=== PATIENT | male | born 1985 | race Caucasian/White ===

== ENCOUNTER 2018-01-09 09:10 | Emergency (ER) | payer MEDICAID ==
[~2018-01-09] VITALS: Ht 180.3 cm; Wt 68.0 kg
[2018-01-09 09:21] VITALS: BP 128/81
[2018-01-09] MEDS ORDERED: HYDR-3965 PO (09:42)
[2018-01-09] MEDS ORDERED: CLIN150C8 PO (09:42)
[2018-01-09] MEDS ORDERED: HYDROcodone/acetaminophen 5mg/325mg tablet PO ONE (10:15)
== END 2018-01-09 10:21 | disposition home or self-care (01) ==
LOC: ER 09:11
DX: K08.89 Other specified disorders of teeth and supporting structures (principal)
CPT/HCPCS: 99283

== ENCOUNTER 2023-05-31 12:27 | Inpatient (IN) | payer MEDICAID ==
[~2023-05-31] VITALS: Ht 180.3 cm; Wt 68.2 kg
[~2023-05-31 12:27] MED LIST: CLIN-214 PO
[2023-05-31 13:27] LABS: BASOPHILS # (AUTO) 0.1 X10'3 (0-0.2); BASOPHILS % (AUTO) 0.4 % (0-1); EOSINOPHILS % (AUTO) 0.2 % (0-6); HEMATOCRIT 55.7 % (42.0-52.0); LYMPHOCYTES % (AUTO) 8.7 % (21-51); MEAN CORPUSCULAR HEMOGLOBIN 30.3 PG (27.0-31.0); MEAN CORPUSCULAR HGB CONC 33.9 g/dL (33.0-36.5); MEAN CORPUSCULAR VOLUME 89.4 FL (78-98); MEAN PLATELET VOLUME 7.2 FL (7.4-10.4); MONOCYTES # (AUTO) 1.1 X10'3 (0-0.9); MONOCYTES % (AUTO) 4.6 % (2-12); NEUTROPHILS # (AUTO) 19.8 X10'3 (1.8-7.7); NEUTROPHILS % (AUTO) 86.1 % (42-75); PLATELET COUNT 306 X10'3 (140-440); RED BLOOD COUNT 6.23 X10'6 (4.70-6.10); RED CELL DISTRIBUTION WIDTH 13.5 % (11.5-14.5)
[2023-05-31 13:33] LABS: HEMOGLOBIN 18.9 g/dl (14.0-17.9)
[2023-05-31 13:43] LABS: ALANINE AMINOTRANSFERASE 21 U/L (12-78); ALBUMIN/GLOBULIN RATIO 1.6 (1.1-1.5); ALKALINE PHOSPHATASE 124 IU/L (46-116); ANION GAP 17 (8-16); ASPARTATE AMINO TRANSFERASE 18 U/L (10-37); BILIRUBIN,TOTAL 2.4 MG/DL (0.1-1.0); BLOOD UREA NITROGEN 12 MG/DL (7-18); BUN/CREATININE RATIO 10.3 (10.0-20.0); CALCIUM 9.8 MG/DL (8.5-10.1); CHLORIDE 103 MMOL/L (99-107); CREATININE 1.16 MG/DL (0.60-1.10); GLUCOSE 100 MG/DL (70-104); LIPASE 74 U/L (16-77); POTASSIUM 4.4 MMOL/L (3.5-5.1); SODIUM 142 MMOL/L (135-145); TOTAL CARBON DIOXIDE 22.2 MMOL/L (24-32); TOTAL PROTEIN 8.1 G/DL (6.4-8.2); eCRCL 84 ML/MIN; eGFR 71 ML/MIN
[2023-05-31 13:53] LABS: BILIRUBIN,URINE NEGATIVE (Neg); CLARITY,URINE CLEAR (Clear); COLOR,URINE YELLOW (Yellow); GLUCOSE, URINE NEGATIVE (Neg); KETONES,URINE 40 mg/dl (Neg); LEUKOCYTE ESTERASE ,URINE NEGATIVE (Neg); NITRITES, URINE NEGATIVE (Neg); OCCULT BLOOD,URINE NEGATIVE (Neg); PH,URINE 6.5 (4.8-8.0); PROTEIN,URINE NEGATIVE (Neg); UA COLLECTION TYPE CLN CATCH MIDSTREAM; UROBILINOGEN,URINE 0.2 E.U/dL (0.2-1.0)
[2023-05-31] MEDS ORDERED: iohexol 300mg/ml 100ml inj. ONE (15:09)
[2023-05-31] MEDS: normal saline 1000ml 1,000 ML IV ONE ×2 (15:26→16:19)
[2023-05-31] MEDS: ondansetron/PF 4mg/2ml inj IV ONE (15:26)
[2023-05-31] MEDS: morphine 4 MG/ML inj SYRINge IV ONE (15:26)
[2023-05-31] MEDS: dextrose 5%-water 1,000 ML IV ONE (16:11)
[2023-05-31] MEDS: piperacillin/tazo 3.375gm/50ml 50 ML IV ONE (17:41)
[2023-05-31] MEDS ORDERED: potassium Cl 40MEQ/1/2NS 520ml 520 ML IV PRN (17:50)
[2023-05-31] MEDS ORDERED: potassium Cl 20 mEq SR tablet PO PRN ×2 (17:50)
[2023-05-31] MEDS ORDERED: mag hydrox/Alum hydrox/simeth 30ml oral suspension PO PRN (17:50)
[2023-05-31] MEDS ORDERED: acetaminophen 325mg tablet PO PRN (17:50)
[2023-05-31] MEDS ORDERED: ondansetron/PF 4mg/2ml inj IV PRN (17:50)
[2023-05-31] MEDS ORDERED: HYDROmorphone/PF 0.2 MG/ML SYRINGE IV PRN (17:50)
[2023-05-31] MEDS ORDERED: magnesium 4gm in 100ml NS 100 ML IV PRN (17:50)
[2023-05-31] MEDS ORDERED: magnesium 2GM in 50ml NS 50 ML IV PRN (17:50)
[2023-05-31] MEDS: nicotine 21mg patch - 24 hr TD ONE (17:53)
[2023-05-31] MEDS: normal saline 1000ml 1,000 ML IV SCH (18:13)
[2023-05-31] MEDS: HYDROmorphone inj. 0.5 MG/0.5 ML DISP.SYRIN IV PRN (18:44)
[2023-05-31] MEDS: K and/or MAG REPLACEMENT MC SCH (20:01)
[2023-05-31] MEDS ORDERED: NO HOME MEDS (21:25)
[2023-06-01] VITALS (20 sets, daily range): BP systolic 106–152; BP diastolic 58–92; PULSE 39–50; RESP 16–20; TEMP 97.3–97.9; O2SAT 99–100
[2023-06-01 08:28] LABS: BASOPHILS % (AUTO) 0.3 % (0-1); EOSINOPHILS # (AUTO) 0.2 X10'3 (0-0.9); EOSINOPHILS % (AUTO) 1.5 % (0-6); HEMATOCRIT 45.2 % (42.0-52.0); HEMOGLOBIN 15.2 g/dl (14.0-17.9); LYMPHOCYTES # (AUTO) 2.5 X10'3 (1.1-4.8); LYMPHOCYTES % (AUTO) 19.1 % (21-51); MEAN CORPUSCULAR HEMOGLOBIN 30.4 PG (27.0-31.0); MEAN CORPUSCULAR HGB CONC 33.7 g/dL (33.0-36.5); MEAN CORPUSCULAR VOLUME 90.2 FL (78-98); MEAN PLATELET VOLUME 7.1 FL (7.4-10.4); MONOCYTES # (AUTO) 1.2 X10'3 (0-0.9); MONOCYTES % (AUTO) 9.1 % (2-12); NEUTROPHILS # (AUTO) 9.1 X10'3 (1.8-7.7); PLATELET COUNT 186 X10'3 (140-440); RED BLOOD COUNT 5.01 X10'6 (4.70-6.10); RED CELL DISTRIBUTION WIDTH 13.3 % (11.5-14.5)
[2023-06-01 08:35] LABS: PROTHROMBIN TIME 10.9 SECONDS (9.0-12.0)
[2023-06-01 08:40] LABS: ALANINE AMINOTRANSFERASE 15 U/L (12-78); ALBUMIN 3.5 G/DL (3.4-5.0); ALBUMIN/GLOBULIN RATIO 1.5 (1.1-1.5); ALKALINE PHOSPHATASE 92 IU/L (46-116); ANION GAP 7 (8-16); ASPARTATE AMINO TRANSFERASE 36 U/L (10-37); BILIRUBIN,TOTAL 3.2 MG/DL (0.1-1.0); BLOOD UREA NITROGEN 7 MG/DL (7-18); BUN/CREATININE RATIO 7.4 (10.0-20.0); CALCIUM 7.9 MG/DL (8.5-10.1); CHLORIDE 107 MMOL/L (99-107); CREATININE 0.95 MG/DL (0.60-1.10); GLUCOSE 77 MG/DL (70-104); MAGNESIUM 1.9 MG/DL (1.5-2.4); POTASSIUM 4.1 MMOL/L (3.5-5.1); SODIUM 141 MMOL/L (135-145); TOTAL CARBON DIOXIDE 26.8 MMOL/L (24-32); TOTAL PROTEIN 5.9 G/DL (6.4-8.2); eCRCL 103 ML/MIN; eGFR 89 ML/MIN
[2023-06-01] MEDS: INDOCYANINE GREEN 25 MG/10 ML VIAL IV STA (09:12)
[2023-06-01] MEDS: piperacillin/tazo 4.5gm/100ml 100 ML IV SCH (09:29)
[2023-06-01] MEDS ORDERED: ondansetron/PF 4mg/2ml inj ONE (09:35)
[2023-06-01] MEDS ORDERED: neostigmine methylsulfate 1 MG/ML 10ml vial ONE (09:35)
[2023-06-01] MEDS ORDERED: sevoflurane 250ml liquid IH ONE (09:35)
[2023-06-01] MEDS ORDERED: LIDOcaine 2% (20mg/ml) 5ml vial ONE (09:35)
[2023-06-01] MEDS ORDERED: glycopyrrolate 0.2mg/ml inj ONE (09:35)
[2023-06-01] MEDS ORDERED: dexamethasone sod phosphate 10mg/ml inj ONE (09:35)
[2023-06-01] MEDS ORDERED: meperidine/PF 25mg/ml syringe IV PRN ×3 (09:40)
[2023-06-01] MEDS ORDERED: enalaprilat dihydrate 2.5mg/2ml vial IV PRN (09:40)
[2023-06-01] MEDS ORDERED: morphine 2 MG/ML inj. syringe IV PRN (09:40)
[2023-06-01] MEDS ORDERED: morphine 4 MG/ML inj SYRINge IV PRN (09:40)
[2023-06-01] MEDS ORDERED: proCHLORperazine 10 MG/2 ml inj IV PRN (09:40)
[2023-06-01] MEDS ORDERED: ondansetron/PF 4mg/2ml inj IV PRN (09:40)
[2023-06-01] MEDS ORDERED: labetalol 20mg/4ml (5mg/ml) syringe IV PRN (09:40)
[2023-06-01] MEDS: ringers solution, lacted 1,000 ML IV SCH (09:40)
[2023-06-01] MEDS ORDERED: fentaNYL/PF 50MCG/1 ML 2ML syringe ONE (09:44)
[2023-06-01] MEDS ORDERED: midazolam 1 mg/ML 2ml injection ONE (09:45)
[2023-06-01] MEDS ORDERED: meperidine/PF 25mg/ml syringe ONE (09:45)
[2023-06-01] MEDS ORDERED: propofol inj 20 ML IV ONE (09:46)
[2023-06-01] MEDS: BUPIVAcaine/PF 2.5 mg/ml (0.25%) 30ml vial IJ ONE (10:11)
[2023-06-01] MEDS: LIDOcaine 1% 30ml preserv. free vial IJ ONE (10:11)
[2023-06-01] MEDS ORDERED: rocuronium 10mg/ml inj IV ONE (10:28)
[2023-06-01] MEDS ORDERED: HYDROcodone/acetaminophen 10/325mg tab PO PRN (11:00)
[2023-06-01] MEDS ORDERED: naloxone 0.4 mg/ml inj IV PRN (11:00)
[2023-06-01] MEDS ORDERED: HYDROcodone/acetaminophen 5mg/325mg tablet PO PRN (11:00)
[2023-06-01] MEDS ORDERED: ONDA4TAB12 PO (13:35)
[2023-06-01] MEDS ORDERED: HYDR-3972 PO (13:35)
[2023-06-01] MEDS ORDERED: NICO-631 TD (13:35)
[2023-06-01] MEDS ORDERED: nicotine 14mg patch - 24hr TD SCH (20:00)
== END 2023-06-01 17:16 | disposition home or self-care (01) | DRG 263 ==
LOC: ER 12:28 → ED HOLD 17:54 → SUR 3N 06-01 06:53
PROVIDERS: ADMIT Family Medicine; ATTEND Family Medicine
PROC: BW211ZZ Computerized Tomography (CT Scan) of Abdomen and Pelvis using Low Osmolar Contrast (ICD-10-PCS; 2023-05-31)
PROC: BF502Z0 Other Imaging of Bile Ducts using Fluorescing Agent, Intraoperative (ICD-10-PCS; 2023-06-01)
PROC: 8E0W4CZ Robotic Assisted Procedure of Trunk Region, Percutaneous Endoscopic Approach (ICD-10-PCS; 2023-06-01)
PROC: 0FT44ZZ Resection of Gallbladder, Percutaneous Endoscopic Approach (ICD-10-PCS; principal; 2023-06-01 09:35)
DX: K80.00 Calculus of gallbladder with acute cholecystitis without obstruction (principal); N17.0 Acute kidney failure with tubular necrosis; F17.210 Nicotine dependence, cigarettes, uncomplicated; E87.20 Acidosis, unspecified; Z79.899 Other long term (current) drug therapy
CPT/HCPCS: 36415; 74177; 76700; 80053; 81003; 82948; 83690; 83735; 85025; 85610; 93005; 99285; G0378; J1100; J1170; J2175; J2250; J2270; J2405; J2543; J2704; J2710; J3010; J3490; J7030; J7042; Q9967

== ENCOUNTER 2023-06-04 14:24 | Emergency (ER) | payer MEDICAID, OTHER ==
[~2023-06-04] VITALS: Ht 180.3 cm; Wt 65.0 kg
[~2023-06-04 14:24] MED LIST changes: -CLIN-214 PO; +HYDR-3972 PO; +NICO-631 TD; +ONDA4TAB12 PO
[2023-06-04 14:31] VITALS: TEMP 98
[2023-06-04] MEDS ORDERED: PRED10TA PO (15:43)
[2023-06-04] MEDS ORDERED: FAMO-129 PO (15:43)
[2023-06-04] MEDS ORDERED: DIPH25CA83 PO (15:43)
[2023-06-04] MEDS: famotidine 20mg tablet PO ONE (16:07)
[2023-06-04] MEDS: diphenhydrAMINE 50 mg/ml inj IM ONE (16:08)
[2023-06-04] MEDS: dexamethasone sod phosphate 10mg/ml inj IM STA (16:08)
[2023-06-04 16:25] VITALS: BP 133/89; PULSE 52; RESP 12; O2SAT 100
== END 2023-06-04 16:28 | disposition home or self-care (01) ==
LOC: ER 14:25
DX: L50.9 Urticaria, unspecified (principal); Z79.899 Other long term (current) drug therapy; Z79.1 Long term (current) use of non-steroidal anti-inflammatories (NSAID)
CPT/HCPCS: 96372; 99284; J1100; J1200